=== PATIENT | female | born 1940 | race Asian ===

== ENCOUNTER 2024-11-18 22:10 | Inpatient (IN) | payer OTHER ==
[~2024-11-18] VITALS: Ht 157.5 cm; Wt 53.0 kg
[2024-11-18 22:38] LABS: PLATELET COUNT (AUTO) 223 K/uL (150-450); RED BLOOD CELL COUNT(AUTO) 3.81 MIL/uL (4.00-5.20); RED CELL DISTRIBUTION WIDTH 13.5 % (11.5-14.5); WHITE BLOOD COUNT (AUTO) 5.7 K/uL (4.5-11.0)
[2024-11-18 22:46] LABS: CALCIUM, TOTAL 9.3 mg/dL (8.8-10.5); CREATININE 3.10 mg/dL (0.60-1.30); GLOMERULAR FILTR. RATE CALC 14 mL/min (>60); GLUCOSE,RANDOM 173 mg/dL (70-110); SODIUM SERUM 136 mmol/L (136-145); UREA NITROGEN, BLOOD 38 mg/dL (7-18)
[2024-11-18 22:52] LABS: CREATINE KINASE, TOTAL ONLY 235 U/L (26-192)
[2024-11-18 22:56] LABS: TROPONIN I-HIGH SENSITIVITY 46 ng/L (<51)
[2024-11-18] MEDS: ONDANSETRON HCL 4 MG/2 ML VIAL IVP ONE (23:39)
[2024-11-18] MEDS: SODIUM CHLORIDE 0.9% 1,000 ML IV ONE (23:39)
[2024-11-19 02:22] LABS: ASPARTATE AMINOTRANSFERASE 32.0 U/L (15-37); TOTAL PROTEIN, SERUM 7.3 g/dL (6.4-8.2)
[2024-11-19 02:26] LABS: LACTIC ACID 1.7 mmol/L (0.4-2.0)
[2024-11-19 02:48] LABS: APPEARANCE,URINE HAZY (CLEAR); GLUCOSE, URINE (UA) NEGATIVE (NEGATIVE); LEUKOCYTE ESTERASE ,URINE NEGATIVE (NEGATIVE); NITRATE,URINE NEGATIVE (NEGATIVE); OCCULT BLOOD,URINE SMALL (NEGATIVE); SPECIFIC GRAVITIY, URINE 1.022 (1.003-1.030)
[2024-11-19 03:02] LABS: SQUAMOUS EPITHELIAL CELL,UR Few /LPF (None Seen)
[2024-11-19 06:21] VITALS: BP 144/68; PULSE 86; RESP 18; TEMP 99; O2SAT 100
[2024-11-19 07:42] VITALS: BP 124/64; PULSE 101; RESP 18; TEMP 98.4; O2SAT 100
[2024-11-19 11:31] VITALS: BP 123/56; PULSE 93; RESP 18; TEMP 97.5; O2SAT 100
[2024-11-19] MEDS ORDERED: MORPHINE SULFATE 4 MG/ML VIAL IVP PRN (12:15)
[2024-11-19] MEDS ORDERED: ACETAMINOPHEN 325 MG TABLET PO PRN (12:15)
[2024-11-19] MEDS ORDERED: ALBUTEROL SULFATE 2.5 MG/0.5 ML NEB SOLUTION NEB PRN (12:15)
[2024-11-19] MEDS ORDERED: MAGNESIUM HYDROXIDE SUSPENSION 30 ML UDCUP PO PRN (12:15)
[2024-11-19] MEDS ORDERED: HYDROCODONE/ACETAMINOPHEN 5-325 MG TABLET PO PRN (12:15)
[2024-11-19] MEDS ORDERED: IPRATROPIUM BROMIDE 0.5 MG/2.5 ML NEB SOLUTION NEB PRN (12:15)
[2024-11-19] MEDS ORDERED: ZOLPIDEM TARTRATE 5 MG TABLET PO PRN (12:15)
[2024-11-19] MEDS ORDERED: ONDANSETRON HCL 4 MG/2 ML VIAL IVP PRN (12:15)
[2024-11-19] MEDS ORDERED: BISACODYL 10 MG RECTAL RECTAL SUPPOSITORY PR PRN (12:15)
[2024-11-19 12:35] LABS: PLATELET COUNT (AUTO) 229 K/uL (150-450); RED BLOOD CELL COUNT(AUTO) 4.02 MIL/uL (4.00-5.20); RED CELL DISTRIBUTION WIDTH 13.9 % (11.5-14.5); WHITE BLOOD COUNT (AUTO) 6.9 K/uL (4.5-11.0)
[2024-11-19] MEDS: SODIUM CHLORIDE 0.45% 1,000 ML IV SCH (12:41)
[2024-11-19 12:44] LABS: CALCIUM, TOTAL 9.1 mg/dL (8.8-10.5); CREATININE 2.48 mg/dL (0.60-1.30); GLOMERULAR FILTR. RATE CALC 18.0 mL/min (>60); GLUCOSE,RANDOM 135.0 mg/dL (70-110); SODIUM SERUM 139.0 mmol/L (136-145); UREA NITROGEN, BLOOD 39.0 mg/dL (7-18)
[2024-11-19 12:49] LABS: ASPARTATE AMINOTRANSFERASE 39.0 U/L (15-37); TOTAL PROTEIN, SERUM 7.5 g/dL (6.4-8.2)
[2024-11-19] MEDS: POTASSIUM CHLORIDE 20 MEQ ER TABLET PO ONE (13:21)
[2024-11-19] MEDS: POTASSIUM CHL 10 MEQ/WATER 50 ML IV SCH (13:32)
[2024-11-19] MEDS: HEPARIN SODIUM,PORCINE 5,000 UNITS/ML VIAL SQ SCH (15:51)
[2024-11-19 15:55] VITALS: BP 129/66; PULSE 101; RESP 16; TEMP 97.3; O2SAT 100
[2024-11-20] MEDS ORDERED: PANTOPRAZOLE SODIUM 40 MG DR TABLET PO SCH (09:00)
== END 2024-11-19 18:50 | disposition short-term general hospital (02) | DRG 70 ==
LOC: EMS 22:14 → EDH 11-19 03:38 → 5S 11-19 06:00
PROVIDERS: ADMIT Hospitalist; ATTEND Hospitalist
DX: G93.40 Encephalopathy, unspecified (principal); E43 Unspecified severe protein-calorie malnutrition; N17.9 Acute kidney failure, unspecified; M46.26 Osteomyelitis of vertebra, lumbar region; I95.9 Hypotension, unspecified; E86.0 Dehydration; E87.6 Hypokalemia; M46.46 Discitis, unspecified, lumbar region; G20.A1 Parkinson's disease without dyskinesia, without mention of fluctuations; Z68.21 Body mass index [BMI] 21.0-21.9, adult; M48.061 Spinal stenosis, lumbar region without neurogenic claudication; M85.88 Other specified disorders of bone density and structure, other site; Z79.899 Other long term (current) drug therapy
CPT/HCPCS: 70450; 71045; 74176; 76770; 80048; 80053; 80076; 81001; 82550; 83605; 83880; 84484; 85025; 85610; 85730; 92610; 93005; 96361; 96374; 97163; 97167; 97530; 99291; G0378; J1644; J2405; J3480; 36415-L1; 36415-TC